=== PATIENT | female | born 2000 | race African-American/Black ===

== ENCOUNTER 2022-12-28 13:35 | Emergency (ER) | payer MEDICAID ==
[~2022-12-28] VITALS: Ht 157.5 cm; Wt 73.0 kg
[2022-12-28] MEDS ORDERED: ACETAMINOPHEN 325MG TABLET PO ONE (14:00)
[2022-12-28] MEDS ORDERED: IBUPROFEN 400MG TABLET PO ONE (14:00)
[2022-12-28 14:42] LABS: CLARITY URINE CLOUDY (CLEAR); COLOR URINE YELLOW (YELLOW); KETONES URINE TRACE (NEGATIVE); LEUKOCYTE ESTERASE URINE 1+ (NEGATIVE); NITRITE URINE POSITIVE (NEGATIVE); OCCULT BLOOD URINE NEGATIVE (NEGATIVE); PROTEIN URINE NEGATIVE (NEGATIVE); SPECIFIC GRAVITY URINE 1.023 (1.005-1.030)
[2022-12-28] MEDS ORDERED: METOCLOPRAMIDE HCL 10MG TABLET PO ONE (15:00)
[2022-12-28] MEDS ORDERED: NITR-87 MT (15:27)
[2022-12-28 16:01] VITALS: BP 131/71
== END 2022-12-28 16:03 | disposition home or self-care (01) ==
LOC: ER 13:35
DX: N39.0 Urinary tract infection, site not specified (principal); M79.10 Myalgia, unspecified site; Z20.822 Contact with and (suspected) exposure to COVID-19; Z79.899 Other long term (current) drug therapy
CPT/HCPCS: 81003; 81025; 87077; 87086; 87186; 87426; 87804; 99284; C9803; J8597

== ENCOUNTER 2023-01-16 12:14 | Emergency (ER) | payer MEDICAID ==
[~2023-01-16] VITALS: Ht 157.5 cm; Wt 77.2 kg
[~2023-01-16 12:14] MED LIST: NITR-87 MT
[2023-01-16] MEDS ORDERED: ACETAMINOPHEN 325MG TABLET PO PRN (12:45)
[2023-01-16 13:03] LABS: HEMATOCRIT. 34.2 % (36.0-48.0); HEMOGLOBIN. 11.3 g/dL (12.0-16.0); MEAN CORPUSCULAR HEMOGLOBIN 27.5 pg (28.0-32.0); MEAN CORPUSCULAR VOLUME 83.6 fL (81.0-99.0); MEAN PLATELET VOLUME 7.5 fl (7.4-10.4); PLATELET 354 x1000/uL (130-400); RED BLOOD CELL COUNT 4.09 mill/uL (4.2-5.4)
[2023-01-16 13:11] LABS: CHLORIDE 106 mEq/L (98-107)
[2023-01-16 13:21] LABS: B-HCG QUANTITATIVE 795 mIU/mL (<3)
[2023-01-16 14:05] LABS: PLATELET ESTIMATE NORMAL
[2023-01-16 17:03] LABS: CLARITY URINE TURBID (CLEAR); COLOR URINE YELLOW (YELLOW); KETONES URINE NEGATIVE (NEGATIVE); LEUKOCYTE ESTERASE URINE 3+ (NEGATIVE); NITRITE URINE NEGATIVE (NEGATIVE); OCCULT BLOOD URINE TRACE (NEGATIVE); PROTEIN URINE 1+ (NEGATIVE); SPECIFIC GRAVITY URINE 1.016 (1.005-1.030)
[2023-01-16] MEDS ORDERED: CEPH500C2 MT (17:12)
[2023-01-16 17:40] VITALS: BP 119/76
== END 2023-01-16 17:47 | disposition home or self-care (01) ==
LOC: ER 12:14
DX: O26.891 Other specified pregnancy related conditions, first trimester (principal); R10.9 Unspecified abdominal pain; Z3A.01 Less than 8 weeks gestation of pregnancy
CPT/HCPCS: 36415; 76801; 80053; 81003; 84702; 85025; 87077; 87186; 99284